=== PATIENT | female | born 2000 | race Two or more races ===

== ENCOUNTER 2019-04-14 10:06 | Outpatient (CLI) | payer OTHER | END 2019-04-14 10:12 | disposition home or self-care (01) | LOC: SONOGRAMA 10:06 | DX: R22.1 Localized swelling, mass and lump, neck (principal) ==

== ENCOUNTER 2022-11-14 15:53 | Outpatient (CLI) | payer OTHER | END 2022-11-14 17:20 | disposition home or self-care (01) | LOC: PRENATAL 15:53 | PROVIDERS: ATTEND Obstetrics & Gynecology Maternal & Fetal Medicine | DX: O35.3XX0 Maternal care for (suspected) damage to fetus from viral disease in mother, not applicable or unspecified (principal); O35.9XX0 Maternal care for (suspected) fetal abnormality and damage, unspecified, not applicable or unspecified; O99.280 Endocrine, nutritional and metabolic diseases complicating pregnancy, unspecified trimester; Z3A.22 22 weeks gestation of pregnancy ==

== ENCOUNTER 2023-01-26 14:27 | Outpatient (CLI) | payer OTHER | END 2023-01-26 17:00 | disposition home or self-care (01) | LOC: PRENATAL 14:27 | PROVIDERS: ATTEND Obstetrics & Gynecology Maternal & Fetal Medicine | DX: O36.8199 Decreased fetal movements, unspecified trimester, other fetus (principal); O35.9XX0 Maternal care for (suspected) fetal abnormality and damage, unspecified, not applicable or unspecified; O99.280 Endocrine, nutritional and metabolic diseases complicating pregnancy, unspecified trimester; Z3A.32 32 weeks gestation of pregnancy ==